=== PATIENT | male | born 1955 | race Caucasian/White ===

== ENCOUNTER → 2016-06-11 | Outpatient (CLI) | payer OTHER | LOC: BHLMT 09:30 | PROVIDERS: ATTEND Internal Medicine Cardiovascular Disease | DX: I25.10 Atherosclerotic heart disease of native coronary artery without angina pectoris (principal) | CPT/HCPCS: 78452; 93017; A9500 ==

== ENCOUNTER 2017-05-08 07:43 | Observation (INO) | payer OTHER, MEDICARE ==
[2017-05-08] MEDS ORDERED: diphenhydrAMINE 25 MG CAP PO ONE (07:49)
[2017-05-08] MEDS ORDERED: DIAZEPAM 5 MG TAB PO ONE (07:49)
[2017-05-08] MEDS ORDERED: NS 1,000 ML IV ONE (07:49)
[2017-05-08] MEDS ORDERED: ASPIRIN EC 325 MG TAB PO ONE (07:49)
[2017-05-08] MEDS ORDERED: FAMOTIDINE 20 MG TAB PO ONE (07:49)
--- NOTE | 2017-05-08 08:39 | CPEKG ---
Heart Rate: 58 RR Interval: 1034 P-R Interval: 144 QRSD Interval: 106 QT Interval: 448 QTC Interval: 441 P [place]: 61 QRS [place]: 7 T Wave [place]: 49 EKG Severity - NORMAL ECG - EKG Impression: SINUS RHYTHM Electronically Signed By: Franko Leavitt 08-May-2017 08:54:25
[2017-05-08 08:59] LABS: PLATELET COUNT 190 10^3/uL (150-400)
[2017-05-08 09:11] LABS: INR 0.98 (0.83-1.16); PROTIME(PATIENT) 13.2 SEC (12.0-15.0)
--- NOTE | 2017-05-08 09:41 | PDGENHP ---
History & Physical Chief Complaint: Chest pressure and dyspnea on exertion. History of Present Illness: History of multivessel CAD that dates back to 2011. Had 4-vessel CABG in October 2011. Sequential SVG to ramus and obtuse marginal branch subsequently shown to be occluded leading to PCI of the ramus and the obtuse marginal in November 2012. Continues to have persistent episodes of chest pressure and dyspnea on exertion despite subsrantial anti-anginal therapy. Pertinent Past, Social, Family History: Detailed in my 03/26/2017 office note. Relevant Physical Exam: Alert and oriented x3. Regular rate and rhythm with a normal S1 and S2. No murmur or gallop. Lungs clear to auscultation bilaterally. Pulses 2+ in all 4 extremities.
[2017-05-08] MEDS ORDERED: IOPAMIDOL (ISOVUE-370) 150 ML BTL IV ONE ×2 (09:42→10:54)
[2017-05-08] MEDS ORDERED: MIDAZOLAM 2 MG/2 ML VIAL ONE ×2 (09:42→10:56)
[2017-05-08] MEDS ORDERED: fentaNYL 100 MCG/2 ML INJ ONE ×2 (09:42→10:56)
[2017-05-08] MEDS ORDERED: LIDOCAINE 1% 300 MG/30 ML SDV ONE (09:42)
--- NOTE | 2017-05-08 09:43 | PDPROPOC ---
Sedation Plan of Care Sedation Plan of Care: vital signs stable, mental status noted, patient educated of risks, benefits, alternatives, patient can tolerate sedation ASA Classification: ASA 2 Planned drugs: fentanyl, midazolam Mallampati Score: Class 2 Mallampati Reference Image: Patient passed 3-3-2 rule?: Yes
[2017-05-08] MEDS ORDERED: BIVALIRUDIN 250 MG/5 ML VIAL IV ONE (10:28)
[2017-05-08] MEDS ORDERED: NITROGLYCERIN 1,500 MCG/15 ML VIAL MISC ONE (11:29)
[2017-05-08] MEDS ORDERED: PRASUGREL HCL 10 MG TAB ONE (11:51)
[2017-05-08] MEDS ORDERED: ONDANSETRON 4 MG/2 ML VIAL IVP PRN (12:06)
[2017-05-08] MEDS ORDERED: PRASUGREL HCL 10 MG TAB PO ONE (12:06)
[2017-05-08] MEDS ORDERED: ATROPINE SULFATE 1 MG/10 ML SYR IVP PRN (12:06)
[2017-05-08] MEDS ORDERED: HYDROCODONE/APAP 5/325 TAB PO PRN (12:06)
[2017-05-08] MEDS ORDERED: NS 1,000 ML IV SCH (12:15)
--- NOTE | 2017-05-08 12:18 | PDDXCAT ---
Diagnostic Cath Note - . Date: 05/09/17 Group Insurance Specialist: Aurelio Indication: CCC Class III and IV angina on medical treatment - Procedure Access: right groin Procedure: left heart catheterization, coronary angiography, left ventriculogram , vein graft injection, JENNINGS injection, other (PCI of ramus intermedius and PCI of Circumflex) - Materials Left Heart Cath size: 6F Left Heart Cath materials: standard multipack (JL4, JR4, pigtail) - Findings-Left Heart Catheterization LM: Normal. LAD: Flouroscopy which reveals the presence of a previously stented segment in the mid-LAD. Angiography reveals mild to moderate irregularities in the proximal LAD which supplies a large first diagonal branch with mild proximal disease. The LAD is occluded within the stented segment. LCX: Fluoroscopy reveals the presence of a previously stented segment in the mid -circumflex. Angiography reveals mild irregularities proximally. The stented segment is widely patent. Immediately distal to the previous stent, there is a high-grade stenosis of at least 80%. The distal circumflex has high-grade disease in its terminal branch. At this region, the circumflex is too small for PCI. RCA: Mid-RCA 100%. Ramus: There is a large bifurcating ramus intermedius. Fluoroscopy reveals the presence of a lengthy stented segment extending from the proximal ramus into the upper division. Angiography demonstrates that the upper branch of the ramus intermedius is 100% occluded immediately after the bifurcation. The upper branch receives [id number] collateral filling. The lower branch has a focal 90 % stenosis at the bifurcation. EDP: 15 mmHg LVEF: 60% Wall motion: Normal Complications: None Estimated blood loss: <50ml Closure method: Angioseal Assessment: 1) Normal left ventricular systolic function. 2)Coronary artery disease as described above. 3) Successful PCI of the inferior branch of a bifurcating ramus intermedius using a single drug coated stent. 4) Successful PCI of the mid to distal circumflex using a single drug coated stent. Intervention: Based on the patient's clinical history and diagnostic angiography, the decision was made to perform PCI of the ramus intermedius and circumflex. The patient received intravenous Angiomax. A 6 Stateless CLS 3.5 guide catheter was advanced to the left main. There were multiple attempts made at passing a guidewire into the occluded upper division of the ramus intermedius. The total occlusion could not be crossed with either an Intuition guidewire or a Linen Keeper-50 guidewire. The Intuition guidewire was then advanced into the inferior branch of the ramus intermedius. Predilatation of the focal 90% lesion was performed using a 2.0 x 12 mm Emerge balloon and a 2.25 x 12 mm NC Emerge balloon. A 2.25 x 12 mm Synergy stent was advanced into position and deployed at high pressure. Subsequent angiograms demonstrated less than 20% residual stenosis and HARDEEP-III flow. The Intuition guidewire was then directed into the distal circumflex. It was felt that the most distal segment of disease was located in a portion of the circumflex that was too small for PCI. Predilatation of the high-grade stenosis immediately distal to his previous stent was performed using the 2.0 x 12 mm Emerge balloon. A 2.5 x 16 mm Synergy stent was positioned and deployed at high pressure. Subsequent angiograms revealed 0% residual stenosis and HARDEEP-III flow. Patient Problems: Problems Problem Status Onset Acute non-ST segment elevation myocardial infarction Active CAD - Coronary arteriosclerosis Active Family history of ischemic heart disease Active History of - coronary artery bypass grafting Active History of placement of stent for coronary artery disease Active Hyperlipidemia Active
--- NOTE | 2017-05-08 12:27 | CPEKG ---
Heart Rate: 51 RR Interval: 1176 P-R Interval: 164 QRSD Interval: 104 QT Interval: 468 QTC Interval: 432 P [place]: 58 QRS [place]: 3 T Wave [place]: 24 EKG Severity - NORMAL ECG - EKG Impression: SINUS RHYTHM Electronically Signed By: Franko Leavitt 08-May-2017 17:35:39
[2017-05-08] MEDS: GEMFIBROZIL 600 MG TAB PO SCH (17:31)
[2017-05-08] MEDS: PANTOPRAZOLE SODIUM 40 MG TAB PO SCH (19:46)
[2017-05-08] MEDS: RANOLAZINE 500 MG TAB.ER PO SCH (19:46)
[2017-05-09 06:36] VITALS: PULSE 54
[2017-05-09 07:32] VITALS: RESP 12; TEMP 98.1; O2SAT 96
[2017-05-09] MEDS: PANTOPRAZOLE SODIUM 40 MG TAB PO SCH (08:38)
[2017-05-09] MEDS: RANOLAZINE 500 MG TAB.ER PO SCH (08:39)
[2017-05-09] MEDS: GEMFIBROZIL 600 MG TAB PO SCH (08:40)
[2017-05-09] MEDS ORDERED: NON-FORMULARY NEW DRUG (Isosorbide Mononitrate [Isosorbide Mononitrate Er] 60 MG) PO SCH (09:00)
[2017-05-09] MEDS ORDERED: PRASUGREL HCL 10 MG TAB PO SCH (09:00)
[2017-05-09] MEDS ORDERED: CYANO/VITAMIN B12 1000 MCG TAB PO SCH (09:00)
[2017-05-09] MEDS ORDERED: ISOSORBIDE MONONITRATE 30 MG TAB.SR PO SCH (09:00)
[2017-05-09] MEDS ORDERED: TIOTROPIUM BROMIDE IH SCH (09:00)
[2017-05-09] MEDS ORDERED: TIOTROPIUM INHALER 18 MCG/DOSE 5 DOSE/MDI IH SCH (09:00)
[2017-05-09] MEDS ORDERED: ASPIRIN EC 325 MG TAB PO SCH (09:00)
[2017-05-09 10:04] VITALS: BP 164/83
[2017-05-09] MEDS ORDERED: CARVEDILOL 6.25 MG TAB PO SCH (18:00)
--- NOTE | 2017-05-09 23:07 | GDS ---
[f rep st] DISCHARGE SUMMARY DISCHARGE DIAGNOSES: 1. Severe coronary artery disease with coronary artery bypass grafting and previous percutaneous int ervention, status post recurrent angina. 2. History of dyslipidemia, intolerant of statins. 3. Hypertension in this admission. 4. Percutaneous intervention to ramus intermedius branch, as well as circumflex in this admission. BRIEF HISTORY: Please see dictated H and P by Dr. Raul Carey for complete details. In brief, th e patient is a 61-year-old male, with a history of coronary artery disease dating back to 1999, at ich time he had a percutaneous intervention. This was followed by bypass grafting in 2011. More rec ently, he has had onset of 2 different types of chest discomfort. He proceeded to left heart cathete rization with the following results. HOSPITAL COURSE BY PROBLEM: 1. Recurrent angina. He proceeded to left heart catheterization and was found to have a patent JENNINGS to LAD and EMELINA to RCA. His ramus intermedius bifurcates with upper branch that was previously lisandra rod with PTCA and stenting. This is now occluded. His lower branch had a 90% obstruction and this w as treated with PTCA and stenting. His left circumflex had a previous percutaneous intervention. Di stal to that, there was an 80% to 90% obstruction. This was treated with PTCA and stenting in this a dmission. It is also noted that he had high-grade disease to his distal vessel that was too small fo r PCI at this time. He will be resumed on dual antiplatelet therapy. He is a poor metabolizer of Pl avix and therefore, will be on Effient as well as aspirin therapy. His antianginals will be continue d. 2. Dyslipidemia. His total cholesterol is 163, triglycerides 67, LDL 111, HDL 39. He has been into lerant of statins. This can be addressed as an outpatient. 3. Hypertension. His blood pressures have been quite elevated through the latter part of his hospit al stay. He has been started on carvedilol 3.125 p.o. twice daily and will follow his blood pressure s at home. He will have followup appointment with Dr. Carey in 1 week's time. PHYSICAL EXAM: VITAL SIGNS: On day of discharge, blood pressure 164/83, heart rate 78, respirations 12, O2 saturation 96% on room air, temperature 98.1 degrees Fahrenheit. GENERAL: He is a pleasant male in no apparent distress. HEENT: Head is normocephalic, atraumatic. Eyes, PERRL. HEART: Regu lar rate and rhythm. LUNGS: Clear. EXTREMITIES: Right groin site with no ecchymosis, no bruit aus cultated. There are 2+ PT and DP pulses bilaterally. LABORATORY DATA: CBC with WBC 5.66, hemoglobin 16.6, hematocrit 48.7, platelet count 190. BMP with sodium 145, potassium 4.2, chloride 108, CO2 22, BUN 28, creatinine 1.6, glucose 98. RESULTS PENDING: None. DIET: Cardiac. ACTIVITY: Groin precautions reviewed. DISCHARGE MEDICATIONS: Please see med reconciliation. He may continue his isosorbide, Ranexa, Saud nix, Lopid, aspirin, Spiriva, vitamin B12, nitroglycerin. His new medications are Effient 10 mg p.o. daily and carvedilol 3.125 p.o. twice daily. His aspirin dose has been increased to 325 mg p.o. michael ly. FOLLOWUP INSTRUCTIONS: Follow up with Dr. Carey as scheduled. /[id number]/MODL
== END 2017-05-09 10:20 | disposition home or self-care (01) ==
LOC: FCATH 07:43 → F2W 11:49
PROVIDERS: ADMIT Internal Medicine Interventional Cardiology; ATTEND Internal Medicine Interventional Cardiology
DX: I25.119 Atherosclerotic heart disease of native coronary artery with unspecified angina pectoris (principal); E78.5 Hyperlipidemia, unspecified; I10 Essential (primary) hypertension; Z95.1 Presence of aortocoronary bypass graft
CPT/HCPCS: 93005; 93459; C1725; C1760; C1769; C1874; C1887; C9600; J0583; J1644; J2250; J2405; J3010; Q9967

== ENCOUNTER → 2017-06-16 | Outpatient (CLI) | payer OTHER, MEDICARE | LOC: BHFA 10:30 | PROVIDERS: ATTEND Internal Medicine Interventional Cardiology | DX: R42 Dizziness and giddiness (principal) ==

== ENCOUNTER → 2018-02-03 | Outpatient (CLI) | payer OTHER, MEDICARE | LOC: BHLMT 11:00 | PROVIDERS: ATTEND Internal Medicine Cardiovascular Disease | DX: I25.10 Atherosclerotic heart disease of native coronary artery without angina pectoris (principal) | CPT/HCPCS: 93017-PO ==

== ENCOUNTER → 2018-04-13 | Outpatient (CLI) | payer OTHER, MEDICARE ==
[~2018-04-13] MED LIST: IOHEXOL 350mgI/ML (OMNIPAQUE) 150 ML BTL IV ONE
== END ==
LOC: FIMAGING 12:15
PROVIDERS: ATTEND Internal Medicine Interventional Cardiology
DX: I65.23 Occlusion and stenosis of bilateral carotid arteries (principal); M48.02 Spinal stenosis, cervical region; M50.322 Other cervical disc degeneration at C5-C6 level; Z86.73 Personal history of transient ischemic attack (TIA), and cerebral infarction without residual deficits
CPT/HCPCS: 70498; 93880; Q9967

== ENCOUNTER 2018-04-17 08:56 | Inpatient (IN) | payer OTHER, MEDICARE ==
[2018-04-17] MEDS ORDERED: ceFAZolin 2 GM/DEXTROSE 100 ML IV ONE (08:58)
--- NOTE | 2018-04-17 09:49 | PDHPUP ---
History & Physical Update H&P update statement: This history and physical update is based on an assessment of the patient which was completed after admission or registration (within 24 hours), but prior to the surgery/procedure. updated H&P update: no change in patient's condition since H&P completed (reviewed)
[2018-04-17 10:05] LABS: PLATELET COUNT 183 10^3/uL (150-400)
[2018-04-17] MEDS ORDERED: BUPIVACAINE 0.5% 30 ML SDV ONE (10:11)
[2018-04-17] MEDS ORDERED: THROMBIN (BOVINE) 20,000 UNIT SPRAY TP ONE (10:11)
[2018-04-17] MEDS ORDERED: PROTAMINE SULFATE 50 MG/5 ML VIAL IVP ONE (10:11)
[2018-04-17] MEDS ORDERED: REMIFENTANIL HCL 1 MG VIAL ONE ×2 (10:12)
[2018-04-17] MEDS ORDERED: PROPOFOL/EMULSION 500 MG/50 ML BOTTLE IV ONE ×2 (10:13)
[2018-04-17] MEDS ORDERED: ROCURONIUM 50 MG/5 ML VIAL ONE (10:29)
[2018-04-17] MEDS ORDERED: ceFAZolin 1 GM VIAL ONE ×2 (10:36)
[2018-04-17] MEDS ORDERED: ONDANSETRON 4 MG/2 ML VIAL IVP PRN ×2 (10:37→11:38)
[2018-04-17] MEDS ORDERED: ENALAPRILAT DIHYDRATE 1.25 MG/ML VIAL IVP PRN (10:39)
[2018-04-17] MEDS ORDERED: NITROGLYCERIN 0.4 MG BTL SL PRN (10:40)
[2018-04-17] MEDS ORDERED: D5W 1/2 NS W/ 20 KCl/L 1,000 ML IV SCH (10:45)
[2018-04-17] MEDS ORDERED: ONDANSETRON 4 MG/2 ML VIAL ONE (11:15)
[2018-04-17] MEDS ORDERED: DEXAMETHASONE 4 MG/ML VIAL ONE ×2 (11:15)
[2018-04-17] MEDS ORDERED: niCARdipine/NACL/200 ML BAG IV ONE (11:29)
[2018-04-17] MEDS ORDERED: NALOXONE HCL 0.4 MG/ML INJ IVP PRN (11:38)
[2018-04-17] MEDS ORDERED: HYDROCODONE/APAP 5/325 TAB PO PRN (11:38)
[2018-04-17] MEDS ORDERED: ALBUTEROL 3 ML DEYVIAL IH PRN (11:38)
[2018-04-17] MEDS ORDERED: fentaNYL 100 MCG/2 ML INJ IVP PRN (11:38)
--- NOTE | 2018-04-17 11:40 | PDANEPAE ---
ANE History of Present Illness L CEA ANE Past Medical History - Cardiovascular History Hx Hypertension: Yes Hx Arrhythmias: No Hx Chest Pain: Yes Hx Coronary Artery / Peripheral Vascular Disease: Yes Hx CHF / Valvular Disease: No Hx Palpitations: No Cardiovascular History Comment: on going chest pain. lightheadedness,dizzyness, near syncope - Pulmonary History Hx COPD: Yes Hx Asthma/Reactive Airway Disease: No Hx Recent Upper Respiratory Infection: No Hx Oxygen in Use at Home: No Hx Sleep Apnea: No Sleep Apnea Screening Result - Last Documented: Positive - Neurologic History Hx Cerebrovascular Accident: No Hx Seizures: No Hx Dementia: No Neurologic History Comment: short term memory issues since CABG. small PR 2013 - Endocrine History Hx Diabetes: No - Renal History Hx Renal Disorders: No - Liver History Hx Hepatic Disorders: No - Neurological & Psychiatric Hx Hx Neurological and Psychiatric Disorders: Yes Neurological / Psychiatric History Comment: right leg/foot numbness/tingling. intermittent since CABG - Cancer History Hx Cancer: No - GI History Hx Gastrointestinal Disorders: Yes Gastrointestinal History Comment: acid reflux - Other Health History Other Health History: bruises easily - Chronic Pain History Chronic Pain: No - Surgical History Prior Surgeries: CABG 2011. 2012 STENTS PLACED. 2018 STENT PLACED ANE Review of Systems Review of Systems: - Exercise capacity METS (RN): 3 METS ANE Patient History - Allergies Allergies/Adverse Reactions: No Known Allergies Allergy (Verified 05/01/17 16:46) - Home Medications Home Medications: Nitroglycerin [Nitrostat 0.4 mg (*)] 0.4 mg SL PRN PRN 11/19/12 [Last Taken ] Aspirin [Aspirin 81mg (*)] 81 mg PO HS 08/26/13 [Last Taken 04/16/18 16:30] Cyanocobalamin [Vitamin B12 (*)] 500 mcg PO HS 05/01/17 [Last Taken 04/16/18] Isosorbide Mononitrate [Isosorbide Mononitrate ER] 60 mg PO DAILY 05/01/17 [ Last Taken 04/17/18] Ranolazine [Ranexa] 500 mg PO BID 05/01/17 [Last Taken 04/17/18] Tiotropium [place] [Spiriva Respimat] 2 puffs IH DAILY 05/01/17 [Last Taken 04/04] Alirocumab [Praluent Pen] 75 mg SQ Q14D 04/16/18 [Last Taken 04/14/18] Carvedilol [Coreg (*)] 6.25 mg PO BIDMEAL 04/16/18 [Last Taken 04/17/18] - NPO status NPO Since - Liquids (Date): 04/17/18 NPO Since - Liquids (Time): 07:30 NPO Since - Solids (Date): 04/16/18 NPO Since - Solids (Time): 16:30 - Smoking Hx Smoking Status: Former smoker - Family Anes Hx Family Hx Anesthesia Complications: none ANE Labs/Vital Signs - Labs Result Diagrams: 04/17/18 09:50 04/17/18 09:50 - Vital Signs Blood Pressure: 111/85 Heart Rate: 56 Respiratory Rate: 18 O2 Sat (%): 92 Height: 190.5 cm Weight: 99.79 kg ANE Physical Exam - Airway Neck exam: FROM Mallampati Score: Class 2 Mouth exam: normal dental/mouth exam - Pulmonary Pulmonary: clear to auscultation - Cardiovascular Cardiovascular: regular rate and rhythym - ASA Status ASA Status: III ANE Anesthesia Plan Anesthesia Plan: general endotracheal anesthesia Lines/Monitors: arterial line
[2018-04-17] MEDS ORDERED: ePHEDrine SULFATE 25 MG/5 ML SYR ONE ×2 (12:28)
--- NOTE | 2018-04-17 12:58 | POSTANESTH ---
Post Anesthetic Evaluation Cardiovascular Status: Normal, Stable Respiratory Status: Normal, Stable Level of Consciousness/Mental Status: Can Participate in Eval, Mildly Sleepy, Arousable Pain Control: Adequate, Prn Tx Ordered Nausea/Vomiting Control: Adequate, Prn Tx Ordered Complications Possibly Related to Anesthesia: None Noted (Moving all four extremities on command,)
--- NOTE | 2018-04-17 13:42 | PDMN ---
Medical Necessity Medical necessity: Pt meets IP criteria as of 04/17/2018 per and [facility] ( Cardiovascular surgery, Thromboendarterectomy); Medicare IP only procedure
[2018-04-17] MEDS ORDERED: ALBUMIN 5% 500 ML BOTTLE IV ONE (13:46)
--- NOTE | 2018-04-17 13:46 | POSTOPPROG ---
Post Op Note Date of Operation: 04/17/18 Surgeon: Tejinder Yo Loss Mitigation Specialist: Keshawn Bobo Anesthesiologist: Dr Britt Anesthesia: GET(General Endotracheal) Pre-op Diagnosis: L carotid stenosis Post-op Diagnosis: same Indication: risk of stroke, recent TIA Procedure: Left CEA Findings: plaque Inf/Abcess present in the surg proc area at time of surgery?: No Depth: Deep Incisional (Fascial) EBL: Minimal Specimen(s): plaque
[2018-04-17] MEDS ORDERED: ceFAZolin 2 GM/DEXTROSE 100 ML IV SCH (14:00)
[2018-04-17] MEDS ORDERED: ALBUMIN 5% 500 ML IV ONE (14:00)
[2018-04-17] MEDS: HYDROCODONE/APAP 5/325 TAB PO PRN ×2 (14:34→21:10)
[2018-04-17] MEDS: ceFAZolin 2 GM/DEXTROSE 100 ML IV SCH ×2 (14:44→22:01)
[2018-04-17] MEDS: HYDROmorphONE/DILAUDID 1 MG/ML INJ IVP PRN ×2 (15:32→23:03)
[2018-04-17] MEDS: CARVEDILOL 6.25 MG TAB PO SCH ×2 (17:09→21:05)
[2018-04-17] MEDS: PANTOPRAZOLE SODIUM 40 MG TAB PO SCH (19:53)
[2018-04-17] MEDS ORDERED: ASPIRIN 81 MG CHEWABLE TAB PO SCH (21:00)
[2018-04-17] MEDS: RANOLAZINE 500 MG TAB.ER PO SCH (21:05)
[2018-04-18] MEDS: ceFAZolin 2 GM/DEXTROSE 100 ML IV SCH (06:05)
[2018-04-18] MEDS: HYDROmorphONE/DILAUDID 1 MG/ML INJ IVP PRN (07:03)
[2018-04-18] MEDS: RANOLAZINE 500 MG TAB.ER PO SCH (09:00)
[2018-04-18] MEDS: PANTOPRAZOLE SODIUM 40 MG TAB PO SCH (09:00)
[2018-04-18] MEDS ORDERED: Tiotropium Bromide [Spiriva Respimat] 2 PUFFS IH SCH (09:00)
[2018-04-18] MEDS ORDERED: PRASUGREL HCL 10 MG TAB PO SCH (09:00)
[2018-04-18 10:00] VITALS: BP 97/45
[2018-04-18] MEDS: CARVEDILOL 6.25 MG TAB PO SCH (10:21)
--- NOTE | 2018-04-18 11:56 | SOAPPROG ---
SOAP Progress Note Assessment/Plan: Assessment: VS STABLE/ NEURO INTACT/ WOUND OK/ ALERT/ WANTS TO GO HOME CHEST CLEAR/ COR RR/ EXTREM INTACT Plan:HOME TODAY 04/18/18 11:55 Objective: Vital Signs Temp Pulse Resp BP Pulse Ox 37.1 C 57 L 12 97/45 L 94 04/18/18 07:09 04/18/18 10:21 04/18/18 09:59 04/18/18 09:59 04/18/18 09:59 Laboratory Results 04/18/18 05:20 04/18/18 05:20 04/17/18 04/18/18 04/19/18 05:59 05:59 05:59 Intake Total 3356 Output Total 2950 Balance 406 ICD10 Worksheet Patient Problems: Problems Problem Status Onset Acute non-ST segment elevation myocardial infarction Active CAD - Coronary arteriosclerosis Active Family history of ischemic heart disease Active History of - coronary artery bypass grafting Active History of placement of stent for coronary artery disease Active Hyperlipidemia Active
--- NOTE | 2018-04-18 15:36 | ASMTLACE ---
ARM[place] Length of stay for Answers: 1 day current admission Acuity / Level of Answers: Yes Care: Did the patient have an inpatient admission? Comorbidities - select Answers: Coronary Artery Disease all that apply Other Notes: Carotid stenosis, CABG, stents, hy perlipidemia # of Emergency department Answers: 0 visits in the last 6 months Score: 7 Date Signed: 04/18/2018 03:36 PM Electronically Signed By:Puja Galvin RN
--- NOTE | 2018-04-18 15:42 | ASDISCHSUM ---
Discharge Information Plan Status:Home with No Needs Medically Cleared to Leave:04/17/2018 Discharge Date:04/18/2018 12:50 PM CM D/C Disposition:Home, Routine, Self-Care ADT D/C Disposition:Home, Routine, Self-Care Projected Discharge Date:04/18/2018 12:50 PM Transportation at D/C:Family Discharge Delay Reason: Follow-Up Date:04/18/2018 12:50 PM Discharge Slot:2 - 12:01 pm - 18:00 pm Final Diagnosis:Carotid stenosis, s/p left CEA Placement Information Patient Contact Information Contact Name:DOLLY Relationship: Address:[address] City:[place] Alternate Phone: [facility]/Zip Code:[place] [address] Email: Financial Information Financial Class:Medicare Primary Plan Desc:MEDICARE INPATIENT Primary Plan Number:[id number] Secondary Plan Desc:[employer]/MDR SUPPLEMENT Secondary Plan Number:[id number] Assessment Information LACE LACE Length of stay for Answers: 1 day current admission Acuity / Level of Answers: Yes Care: Did the patient have an inpatient admission? Comorbidities - select Answers: Coronary Artery Disease all that apply Other Notes: Carotid stenosis, CABG, stents, hy perlipidemia # of Emergency department Answers: 0 visits in the last 6 months Score: 7 Date Signed: 04/18/2018 03:36 PM Electronically Signed By:Puja Galvin RN [facility] Progress Note CM Note CM Note Notes: Reviewed chart. Pt admitted for planned left CEA secondary to carotid stenosis. History is extensive and includes coronary artery disease, pt is s/p stents and a CABG x 4, hyperlipidemia, COPD. Pt is and lives with his . Per MD notes, pt to discharge home independently today with no identified needs. No IM signed, pt admission < 48 hrs. Pt to follow up as directed. CM available for any further issues or concerns. Discharge Plan: Home independently with family support Date Signed: 04/18/2018 03:42 PM Electronically Signed By:Puja Galvin RN Intervention Information
--- NOTE | 2018-04-28 12:51 | GDS ---
[f rep st] DISCHARGE SUMMARY REASON FOR ADMISSION: Surgery for carotid stenosis. PROCEDURE: Left endarterectomy performed by Dr. Yo. HOSPITAL COURSE: The patient is a pleasant 62-year-old male who was noted to have left internal phillips tid artery stenosis of approximately 95%, he was referred by his nursing services manager, he did have an episode of bilateral vision changes which may have been attributable to the carotid stenosis on the left chito e. He also has extensive cardiac history including CABG surgery. He underwent surgery on April, pathology from the surgery demonstrated calcific atherosclerotic plaque. He was discharged t he following day with instructions to follow up in our office in approximately 7-10 days. Overall, h is hospital course was uneventful other than the above mentioned surgery. /[id number]/MODL
== END 2018-04-18 12:50 | disposition home or self-care (01) | DRG 39 ==
LOC: F3N 08:56 → F2N 13:33
PROVIDERS: ADMIT Surgery; ATTEND Surgery
PROC: 03CL0ZZ Extirpation of Matter from Left Internal Carotid Artery, Open Approach (ICD-10-PCS; principal; 2018-04-17 10:30)
DX: I65.22 Occlusion and stenosis of left carotid artery (principal); I10 Essential (primary) hypertension; I25.2 Old myocardial infarction; E78.5 Hyperlipidemia, unspecified; Z95.1 Presence of aortocoronary bypass graft; Z95.5 Presence of coronary angioplasty implant and graft
CPT/HCPCS: 97161-GP; C1768; J0690; J1100; J1170; J1644; J2405; J2704; J2720; P9041

== ENCOUNTER 2018-07-29 13:36 | Observation (INO) | payer OTHER, MEDICARE ==
--- NOTE | 2018-07-29 13:55 | EDPHY ---
H & P Stated Complaint: chest pain Time Seen by Provider: 07/29/18 13:54 HPI/ROS: CHIEF COMPLAINT: Chest pain and dyspnea HISTORY OF PRESENT ILLNESS: The patient has a history of coronary artery disease status post CABG status post PCI most recent stenting in the end of 2018. Patient did undergo a carotid endarterectomy earlier this year. The patient is currently on a aspirin a day. He presents to the ED as he has had intermittent chest pain and shortness of breath increasing over the past day. The patient felt fine yesterday. He denies fever, cough or congestion. He denies acute abdominal pain. He denies infectious symptoms such as fever, vomiting or diarrhea. The patient is currently asymptomatic. The patient reports chest pain like this is atypical for him. He has been having some symptoms of throat discomfort which he states may simply represent acid reflux which he has experienced in the past. REVIEW OF SYSTEMS: A comprehensive 10 point review of systems is otherwise negative aside from elements mentioned in the history of present illness. Source: Patient Exam Limitations: No limitations - Personal History Current Tetanus Diphtheria and Acellular Pertussis (TDAP): Yes - Medical/Surgical History Hx Asthma: Yes Hx Chronic Respiratory Disease: Yes Hx Diabetes: No Hx Cardiac Disease: No Hx Renal Disease: No Hx Cirrhosis: No Hx Alcoholism: No Hx HIV/AIDS: No Hx Splenectomy or Spleen Trauma: No Other PMH: CABG and OK with stents, COPD, GERD, HTN, HIATAL HERNIA - Social History Smoking Status: Former smoker - Physical Exam Exam: General Appearance: Alert, no distress Eyes: Pupils equal and round no pallor or injection ENT, Mouth: Mucous membranes moist Respiratory: There are no retractions, lungs are clear to auscultation Cardiovascular: Regular rate and rhythm Gastrointestinal: Abdomen is soft and nontender, no masses, bowel sounds normal Neurological: A&O, normal motor function, normal sensory exam, normal cranial nerves Skin: Warm and dry, no rashes Musculoskeletal: Neck is supple nontender Extremities: symmetrical, full range of motion Psychiatric: Patient is oriented X 3, there is no agitation Constitutional: Initial Vital Signs Temperature (C) 36.8 C 07/29/18 13:37 Heart Rate 101 H 07/29/18 13:37 Respiratory Rate 16 07/29/18 13:37 Blood Pressure 148/101 H 07/29/18 13:37 O2 Sat (%) 90 L 07/29/18 13:37 O2 Delivery Mode Room Air Allergies/Adverse Reactions: No Known Allergies Allergy (Verified 05/01/17 16:46) Home Medications: Medication Instructions Recorded Nitroglycerin [Nitrostat 0.4 mg 0.4 mg SL PRN PRN 11/19/12 (*)] Aspirin [Aspirin 81mg (*)] 81 mg PO HS 08/26/13 Pantoprazole Sodium [Protonix 40mg 40 mg PO BID #14 tab 08/27/13 (*)] Cyanocobalamin [Vitamin B12 (*)] 500 mcg PO HS 05/01/17 Isosorbide Mononitrate [Isosorbide 60 mg PO DAILY 05/01/17 Mononitrate ER] Ranolazine [Ranexa] 500 mg PO BID 05/01/17 Tiotropium [place] [Spiriva 2 puffs IH DAILY 05/01/17 Respimat] Prasugrel HCl [Effient 10mg (*)] 10 mg PO DAILY 90 Days #90 tab 05/09/17 Alirocumab [Praluent Pen] 75 mg SQ Q14D 04/16/18 Carvedilol [Coreg (*)] 6.25 mg PO BIDMEAL 04/16/18 Medical Decision Making - Diagnostics EKG Interpretation: EKG: Complete interpretation has been separately recorded in the [facility] [employer] archive. Summary impression: Sinus rhythm, rate 93 Imaging Results: Chest x-ray PA/lateral: Images reviewed by myself. Impression negative for heart failure, cardiomegaly or focal infiltrate. ED Course/Re-evaluation: The patient presents the ED with complaints of intermittent chest pain and dyspnea. The patient does have a history of coronary artery disease status post CABG in PCI. The patient denies any cough. He does complain of fatigue and subjective fevers. The patient does report moderate dyspnea on exertion. The patient's EKG demonstrates an it no evidence of ischemia. The patient's initial troponin is normal. The patient's D-dimer is negative which I feel adequately excludes pulmonary embolism. My review of the chest x-ray demonstrates no evidence of cardiomegaly, heart failure or pneumonia. The patient has a heart score of 5 or 6. I do feel he requires admission to the hospital for further evaluation and workup. Nani Frazier from the cardiology service has been notified of the patient's admission. Consultation was made with the hospitalist service at 3:00 p.m.. Differential Diagnosis: Differential diagnosis considered includes myocardial infarction, unstable angina, pericarditis, pneumonia, pulmonary embolism, aortic dissection - Data Points Laboratory Results: Laboratory Results 07/29/18 13:55 07/29/18 13:55 07/29/18 07/29/18 07/29/18 14:03 13:55 13:55 WBC RBC Hgb Hct MCV MCH MCHC RDW Plt Count MPV Neut % (Auto) Lymph % (Auto) [place] % (Auto) Eos % (Auto) Baso % (Auto) Nucleat RBC Rel Count Absolute Neuts (auto) Absolute Lymphs (auto) Absolute Monos (auto) Absolute Eos (auto) Absolute Basos (auto) Absolute Nucleated RBC Immature Gran % Immature Gran # RBC/WBC/PLT Morphology Platelet Estimate D-Dimer 0.46 ug/mLFEU ug/mLFEU (0.00-0.50) Sodium 139 mEq/L mEq/L (135-145) Potassium 4.0 mEq/L mEq/L (3.5-5.2) Chloride 105 mEq/L mEq/L (97-110) Carbon Dioxide 21 mEq/l L mEq/l (22-31) Anion Gap 13 mEq/L mEq/L (6-14) BUN 20 mg/dL mg/dL (7-23) Creatinine 1.1 mg/dL mg/dL (0.7-1.3) Estimated GFR > 60 Glucose 127 mg/dL H mg/dL (70-100) Calcium 9.5 mg/dL mg/dL (8.5-10.4) POC Troponin I 0.00 ng/mL ng/mL (0.00-0.08) NT-Pro-B Natriuret Pep 492 pg/mL H pg/mL (0-125) 07/29/18 13:55 WBC 14.41 10^3/uL H 10^3/uL (3.80-9.50) RBC 5.92 10^6/uL 10^6/uL (4.40-6.38) Hgb 18.1 g/dL H g/dL (13.7-17.5) Hct 52.5 % H % (40.0-51.0) MCV 88.7 fL fL (81.5-99.8) MCH 30.6 pg pg (27.9-34.1) MCHC 34.5 g/dL g/dL (32.4-36.7) RDW 13.7 % % (11.5-15.2) Plt Count 208 10^3/uL 10^3/uL (150-400) MPV 11.2 fL fL (8.7-11.7) Neut % (Auto) 91.6 % H % (39.3-74.2) Lymph % (Auto) 2.9 % L % (15.0-45.0) [place] % (Auto) 4.4 % L % (4.5-13.0) Eos % (Auto) 0.5 % L % (0.6-7.6) Baso % (Auto) 0.2 % L % (0.3-1.7) Nucleat RBC Rel Count 0.0 % % (0.0-0.2) Absolute Neuts (auto) 13.20 10^3/uL H 10^3/uL (1.70-6.50) Absolute Lymphs (auto) 0.42 10^3/uL L 10^3/uL (1.00-3.00) Absolute Monos (auto) 0.63 10^3/uL 10^3/uL (0.30-0.80) Absolute Eos (auto) 0.07 10^3/uL 10^3/uL (0.03-0.40) Absolute Basos (auto) 0.03 10^3/uL 10^3/uL (0.02-0.10) Absolute Nucleated RBC 0.00 10^3/uL 10^3/uL (0-0.01) Immature Gran % 0.4 % % (0.0-1.1) Immature Gran # 0.06 10^3/uL 10^3/uL (0.00-0.10) RBC/WBC/PLT Morphology TNP Platelet Estimate TNP D-Dimer Sodium Potassium Chloride Carbon Dioxide Anion Gap BUN Creatinine Estimated GFR Glucose Calcium POC Troponin I NT-Pro-B Natriuret Pep Point of Care Test Results: Chemistry 07/29/18 14:03 POC Troponin I 0.00 ng/mL ng/mL (0.00-0.08) Departure - Departure Disposition: [facility] Inpatient Acute Clinical Impression: Chest pain Condition: Fair Referrals: JAZZMINE MEJIA [Primary Care Provider] - As per Instructions
--- NOTE | 2018-07-29 14:16 | CPEKG ---
Test Reason : OPEN Blood Pressure : / mmHG Vent. Rate : 093 BPM Atrial Rate : 093 BPM P-R Int : 128 ms QRS Dur : 095 ms QT Int : 357 ms P-R-T Axes : 068 -12 077 degrees QTc Int : 445 ms Sinus rhythm Probable left atrial enlargement Confirmed by Chance Perez ([id number]) on 07/29/2018 2:15:44 PM Referred By: Chance Perez Confirmed By:Chance Perez
[2018-07-29 14:17] LABS: PLATELET COUNT 208 10^3/uL (150-400)
[2018-07-29] MEDS ORDERED: IPRATROPIUM/ALBUTEROL 3 ML DEYVIAL IH PRN (15:52)
[2018-07-29] MEDS ORDERED: ACETAMINOPHEN 325 MG TAB PO PRN (15:52)
[2018-07-29] MEDS ORDERED: ONDANSETRON 4 MG/2 ML VIAL IVP PRN (15:52)
[2018-07-29] MEDS ORDERED: NS 1,000 ML IV SCH (16:00)
--- NOTE | 2018-07-29 16:54 | GHP ---
[f rep st] HISTORY AND PHYSICAL DATE OF ADMISSION: 07/29/2018 CHIEF COMPLAINT: Chest pain and myalgias. HISTORY: The patient is a 62-year-old male with a history of CABG in 2011, stents in 2012 and 2017. After his last cardiac cath in 2018, his chest pain went away for about a month but he continues to have intermittent chronic angina starting up again shortly after that last catheterization. Chest pains happen every couple of days without any obvious pattern. They do not get worse with exertion but he does notice they sometimes get worse when he lies on his back. He also has GERD and has a hard time telling the difference between GERD and chest pain. In the middle of the night last night, he woke up with flu-like symptoms. Initially all of his joints hurt and then it moved to his muscles. He is achy all over. He is dizzy and lightheaded. He was so weak he could barely get dressed to come to the hospital. He has increased shortness of breath. Fever at home 99.8, there is no cough. He feels very dehydrated. He got dizzy and almost passed out when he was upright for the chest x-ray in the emergency room. During this episode, he had recurrence of chest pain similar to his previous chest pains. He describes this as a left-sided chest pressure. PAST MEDICAL HISTORY: 1. Coronary artery disease, status post CABG and stent as above. 2. Peripheral vascular disease status post carotid endarterectomy. 3. Hypertension. 4. Hyperlipidemia. 5. COPD. 6. GERD. 7. Short-term memory loss. MEDICATIONS: Please see computerized record for full detailed list. ALLERGIES: No known drug allergies. SOCIAL HISTORY: He smoked from 1968 until 2009. He did indulge in alcohol socially, sometimes heavy, in the past but none currently due to interactions with his current medication regimen. He lives with his . He is retired from the electrical business. REVIEW OF SYSTEMS: Complete review of systems was obtained. Review of systems negative on constitutional, HEENT, GI, pulmonary, vascular, , hematologic, endocrine and psych; positives as in HPI. FAMILY HISTORY: Reviewed, noncontributory to presenting complaint. PHYSICAL EXAMINATION: GENERAL: Well-developed, well-nourished male, in no distress. VITAL SIGNS: Temperature 36.8, pulse 86, blood pressure 152/89, saturating 90% on room air. HEENT: Eye examination normal conjunctivae. Pupils equal, round, react to light. ENT normal ears and nose. Hearing intact. Normal teeth. Oropharynx dry. NECK: Trachea midline. No thyromegaly. CHEST: Normal effort. LUNGS: Clear to auscultation bilaterally. No wheeze or rhonchi. CARDIOVASCULAR SYSTEM: Regular rate and rhythm. No murmur. No lower extremity edema. ABDOMEN: Soft, nontender. No hepatosplenomegaly. SKIN: Warm, dry, intact. No rash. MUSCULOSKELETAL: No cyanosis or clubbing. Strength 5/5 upper and lower extremities. NEUROLOGIC: Cranial nerves intact. Normal sensation to light touch. PSYCH: Alert and oriented x3. Normal affect. Normal judgment. Normal memory. LABORATORY DATA: White count 14.4, hematocrit 52.5, platelets 208, sodium 139, potassium 4.0, chloride 105, bicarb 21, BUN 20, creatinine 1.1. Glucose 127. Troponins negative. BNP is 492. D-dimer is negative. EKG viewed by me, my personal interpretation is normal sinus rhythm. No ST or T-wave changes. Chest x-ray is negative. Medical records review. His last hospitalization was for his carotid endarterectomy in April of this year. Also previous cath report from 2018 reviewed. ASSESSMENT/PLAN: 1. Chest pain. The patient has a history of chronic angina when the chest pain today is slightly increased from his baseline pain. Last cardiac catheterization with stent placement 2018. Cardiology was consulted by the emergency room. I spoke with Nani Frazier who has already spoken to the patient. Her clinical suspicion for cardiac etiology of chest pain is relatively low. His current heart score is 3 to 4. Nani Frazier ordered an echocardiogram, I will make him n.p.o. after midnight in case stress test is desired but will defer to Cardiology whether or not to proceed. 2. Myalgias, shortness of breath and low-grade fever. This sounds very much like a viral infection. We will check a respiratory PCR. We will check a procalcitonin. He does have leukocytosis. I would like to rule out pneumonia, although at this point, I do not think we have enough evidence to start antibiotics. 3. Dehydration with presyncope. Will hydrate with IV fluids. 4. Coronary artery disease, status post previous coronary artery bypass graft and stents. Will clarify home medication regimen for this and reconcile. 5. Peripheral vascular disease, status post recent carotid endarterectomy. This was done for a greater than 95% stenosis critical lesion in the left internal carotid artery. On the CT angiogram, which was done in March, he had minimal disease in his other vessels. 6. Chronic obstructive pulmonary disease. Currently, I do not hear any wheezing. We will continue his usual nebulizers. This could be mildly exacerbated if due to probable viral infection. CODE STATUS: Full. ADMISSION STATUS: Will admit to observation. Reevaluate tomorrow. DVT PROPHYLAXIS: High risk. [facility]. /[id number]/MODL MTDD
--- NOTE | 2018-07-29 17:05 | ECHO ---
[email or web address] [address] [address] Main: [phone] Echocardiography Examination Transthoracic Name: JAZZMINE GONZALEZ MR#: [id number] Study Date: 07/29/2018 Study Time: 03:51 PM Date of : 1955 Age: 62 year(s) Height: 190.5 cm (75 in.) Weight: 97.52 kg (215 lb.) BSA: 2.26 m2 Gender: Male Examination: Echo Contrast: Image Quality: Fair Rhythm: Heart Rate: BP: 152 mmHg/89 mmHg Indication: CP, Shortness of breath, Hx of CABG, Stents Procedure Staff Referring Physician: Language Instructor: Miguel Angel Cantu RDCS Reading Physician: Julieta Maldonado MD Requesting Provider: Ordering Physician: Nani Frazier Indication: CP, Shortness of breath, Hx of CABG, Stents Measurements Chambers AV/MV Label Value Normal Value Label Value Normal Value LVDd, MM 5.8 cm (4.2cm - 5.9cm) MV E Vmax 0.37 m/s LVDd, 2D 5.1 cm (4.2cm - 5.9cm) MV A Vmax 0.67 m/s LVDs, MM 4.1 cm (2cm - 3.8cm) MV E/A 0.55 LVDs, 2D 3.5 cm (2.1cm - 4cm) MV E/E' lateral 4 IVSd, MM 1.5 cm (0.6cm - 0.9cm) MV E/E' septal 5.3 (0.45 - 1.25) IVSd, 2D 1.2 cm (0.6cm - 1.1cm) MV E' septal 0.07 m/s LVPWd, MM 1.3 cm (0.6cm - 1cm) MV E' lateral 0.09 m/s LVPWd, 2D 1.2 cm (0.6cm - 1cm) MV E/E' mean 4.62 LVEF, 2D 58 % (54% - 74%) MV E' mean 0.08 m/s LA Volume, BP 41 ml (18ml - 58ml) TV/PV LAESV index, BP 18.1 ml/m2 Label Value Normal Value Additional Vessels PV PGmax 6 mmHg Label Value Normal Value PV Vmax, Caliper 1.18 m/s (0.6m/s - 0.9m/s) AoRoot, MM 3.6 cm (2.2cm - 3.7cm) Conclusions 1.The left ventricle is normal in size and systolic function. Ejection fraction 60%. There is subtle inferior hypokinesis. Mild concentric LVH. 2. the right ventricle is normal in size and systolic function. Patient: JAZZMIEN GONZALEZ Study Date: 07/29/2018 Page 1 of 2 03:51 PM 3. no significant valvular disease. 4. no pericardial effusion, but subcostal views were not obtained. 5. No previous echo available for review. Findings Left Ventricle: Subtle inferior hypokinesis. Left ventricle is normal in size. Normal global systolic left ventricular function. The EF is visually estimated to be 60 %. EF range is estimated at 55 % - 60 %. There is mild concentric left ventricular hypertrophy. Diastolic Dysfunction is indeterminate. Right Ventricle: Normal size right ventricle. Right ventricular wall thickness is normal. Right ventricular systolic function is normal. Left Atrium: The left atrium is normal in size. Right Atrium: The right atrium is normal in size. Mitral Valve: Mitral valve appears structurally normal. No significant mitral regurgitation. No mitral valve stenosis. Aortic Valve: No significant aortic valve regurgitation. There is no aortic stenosis. Aortic leaflets exhibit mild calcification. The aortic valve is trileaflet. Tricuspid Valve: Tricuspid valve leaflets are normal in appearance and function. No significant tricuspid regurgitation. Pulmonic Valve: Pulmonic leaflets are normal in appearance and function. Aorta: The aorta is normal. The aortic root size in M-mode measures 3.6 cm. Aorta Measurements AoRoot, MM is 3.6 cm. Pericardium: There are no subcostal view available.. No pericardial effusion. Exam Details Procedure Ordered: Echo Image Quality: Fair (No Signature Object) Patient: JAZZMINE GONZALEZ Study Date: 07/29/2018 Page 2 of 2 03:51 PM [id number]
--- NOTE | 2018-07-29 17:44 | GCON ---
[f rep st] CONSULTATION DATE OF CONSULTATION: 07/29/2018 CHIEF COMPLAINT: Chest pain and flu-like symptoms. HISTORY OF PRESENT ILLNESS: The patient is a 62-year-old male with a history of coronary artery dise ase, who presented to the hospital with chest pain and flu-like symptoms. His cardiac history began in 2011, when he underwent 4-vessel coronary artery bypass grafting. He did well until April 2017 , when he had recurrent chest pain requiring stenting to the ramus and left circumflex artery. At th at time, the JENNINGS to the LAD and EMELINA to the right coronary artery were both patent. Sequential sing le vein graft to the ramus intermedius and obtuse marginal branch was 100% occluded. The patient sta harsha his chest discomfort resolved for approximately 1 month and then returned. He has had intermitte nt chest discomfort since that time that has not necessarily been associated with exertion. This mor olu at 5 a.m., he woke with left-sided chest pain, which has been waxing and waning throughout the d ay. He also noted fairly significant dyspnea on exertion with even minimal exertion such as standing up to walk to the bathroom. This was also associated with dizziness. Lastly, he has had diffuse mu scle and joint achiness. His initial troponin is 0. His BNP is minimally elevated at 492. His whit e blood cell count is also elevated at 14.4. A chest x-ray was read by Radiology as no cardiopulmona ry disease. It was also interpreted by the hospitalist who felt like a small pneumonia could be pres ent. His EKG has nonspecific ST-T wave changes. PAST MEDICAL HISTORY: Coronary artery disease, GERD, COPD, hypertension, hiatal hernia, reflux, phillips tid disease. PAST SURGICAL HISTORY: Four-vessel CABG and left carotid endarterectomy. SOCIAL HISTORY: He is a former tobacco user. He is currently accompanied by his . HOME MEDICATIONS: Nitroglycerin, aspirin, Protonix, vitamin B12, Imdur, Ranexa, Spiriva, Effient, Co reg and Praluent. ALLERGIES: No known drug allergies. REVIEW OF SYSTEMS: A 10-point review of systems was negative except for what is stated in the H and P. PHYSICAL EXAMINATION: GENERAL: Patient appears in no acute distress. VITALS: Blood pressure 152/8 9, heart rate 86, oxygen saturation of 90% on room air. Afebrile. NECK: No carotid bruits or JVD p resent. LUNGS: Clear to auscultation, but poor air movement bilaterally. No wheezes or rhonchi aus cultated. CARDIAC: Regular rate and rhythm, without any significant murmurs, rubs, or gallops appre ciated. ABDOMEN: Distended with bowel sounds present. Nontender to palpation. EXTREMITIES: Palpa ble pulses bilaterally without any evidence of edema. NEUROLOGIC: Nonfocal. PSYCHIATRIC: Mood and affect appropriate. SKIN: No obvious rashes or ecchymosis identified. LABORATORY DATA: Troponin negative x1. BNP 492. White blood cell count is elevated at 14.41. D-di remington negative at 0.46. DIAGNOSTIC STUDIES: His EKG shows normal sinus rhythm with nonspecific diffuse ST-T wave changes. C hest x-ray was negative for acute cardiopulmonary disease. ASSESSMENT: The patient is a 62-year-old male with a history of coronary artery disease and chronic angina, who presents with flu-like symptoms and chest pain. PLAN: The patient has a history of coronary artery disease and chronic angina. He has complained of chest discomfort since 1 month post stenting to his ramus and left circumflex artery in April. This morning, his chest discomfort was slightly more pronounced, but was also associated with flu -like symptoms and shortness of breath. His initial troponin is negative and EKG shows nonspecific S T-T wave changes. I think his symptoms are most likely related to flu/pneumonia, but we will rule ou t a cardiac cause. I would like an echocardiogram to assess for wall motion abnormalities. We will also continue to trend his troponins and repeat an EKG tomorrow morning. He should continue his card iac medications including aspirin, Imdur, Ranexa, Effient, Coreg, and Praluent. He is complaining of shortness of breath and diffuse myalgias. His white blood cell count is elevate d and possible evidence of pneumonia on chest x-ray. This will be further assessed by the bello Pichardo #: [id number]/[id number]
[2018-07-29] MEDS: CARVEDILOL 6.25 MG TAB PO SCH (18:03)
[2018-07-29] MEDS ORDERED: ASPIRIN 81 MG CHEWABLE TAB PO SCH (18:30)
[2018-07-29] MEDS ORDERED: CYANO/VITAMIN B12 1000 MCG TAB PO SCH (18:30)
[2018-07-29] MEDS: RANOLAZINE 500 MG TAB.ER PO SCH (21:00)
[2018-07-29] MEDS: PANTOPRAZOLE SODIUM 40 MG TAB PO SCH (21:01)
[2018-07-30 04:30] LABS: PLATELET COUNT 142 10^3/uL (150-400)
[2018-07-30] MEDS ORDERED: ENOXAPARIN 40 MG/0.4 ML SYR SC SCH (09:00)
[2018-07-30] MEDS ORDERED: ISOSORBIDE MONONITRATE 30 MG TAB.SR PO SCH (09:00)
[2018-07-30] MEDS ORDERED: Tiotropium Bromide [Spiriva Respimat] IH SCH (09:00)
--- NOTE | 2018-07-30 10:23 | PDCARPN ---
Cardiology Progress Note Chief Complaint: Chest pain, YANG, fatigue, and muscle aches. Assessment/Plan: Assessment: Keshawn is a 62 y/o M with a history of HLP, PVD s/p CEA, chronic angina, and CAD s/p 4v CABG in 2011 who presented with myalgias, YANG, and CP. He woke yesterday around 5 AM with diffuse achiness and chest pain. His CP was a little more pronounce then normal. He also noted a mild fever and fairly pronounced YANG. He was short of breath with just walking to the bathroom. His troponins are negative x3 and echo showed subtle inferior hypokinesis. His WBC was elevated but normalized today. He is feeling better today. Plan: 1. CAD- s/p 4v CABG and stenting. Echo showed mild inferior hypokinesis. Plan for Lexiscan nuc today. Continue medical management of his CAD with Aspirin, Coreg, Imdur, and Ranexa. 2. Myalgias- likely viral etiology. WBC normalized. He is feeling better today. 3. PVD s/p CEA- continue statin and Praluent 4. PVC's- occasional on tele. Nuc is pending. Nuc was a low risk study. EF of 50% with no evidence of infarct or ischemia. Ok to d/c home from a cardiac standpoint. He is going to [place] in a few days. Follow up with Dr. Carey when he returns. 07/30/18 13:34 Subjective: C/o of 1 episode of sharp CP which lasted for 5 seconds and then resolved. He is still having intermittant myalgia and CP but his symptoms have improved. Objective: Vital Signs (8 Hrs) Temp Pulse Resp BP Pulse Ox 07/30/18 07:22 37.3 C 76 20 110/68 95 07/30/18 03:46 37.4 C 87 20 139/82 H 92 Intake/Output (24 Hrs) 07/29/18 07/30/18 07/31/18 05:59 05:59 05:59 Intake Total 543 1219 Balance 543 1219 Intake: Oral (ml) 400 IV Infused (ml) 143 1219 Ns 1,000 ml @ 100 mls/hr 143 1219 IV CONT DON Rx#: [id number] Other: Weight 99.278 kg Number of Voids Urinal 1 Number of Stools Bedside Commode 1 Toilet 1 Result Diagrams: 07/30/18 04:10 07/30/18 04:10 Cardiac Labs: Cardiac Lab Results (72 Hrs) 07/30/18 07/29/18 04:10 17:33 Troponin I < 0.012 < 0.012 Telemetry: NSR with frequent PVC's. - Physical Exam Constitutional: healthy appearing Cardiovascular: regular rate and rhythm, no murmurs, no rubs, no gallops Respiratory: clear to auscultate bilat, no crackles, no wheezes Skin: no edema Neurologic: AAOx3 ICD10 Worksheet Patient Problems: Problems Problem Status Onset Chest pain Acute Acute non-ST segment elevation myocardial infarction Active CAD - Coronary arteriosclerosis Active Family history of ischemic heart disease Active History of - coronary artery bypass grafting Active History of placement of stent for coronary artery disease Active Hyperlipidemia Active
[2018-07-30] MEDS ORDERED: REGADENOSON 0.4 MG/5 ML SYR IVP ONE (10:28)
--- NOTE | 2018-07-30 11:16 | CPR ---
[f rep st] NONINVASIVE CARDIAC PROCEDURE REPORT DATE OF PROCEDURE: 07/30/2018 PROCEDURE: Lexiscan nuclear stress test. INDICATION: The patient is a 62-year-old male with a history of coronary artery disease, status post 4-vessel CABG in 2012 and stenting to his ramus and left circ in 2018. He presented to the hospital complaining of progressive chest discomfort as well as myalgias and low-grade fever. An echocardiog vika showed subtle inferior hypokinesis. PROCEDURE IN DETAIL: Consent was obtained, and the patient was placed on continuous telemetry. His resting EKG revealed normal sinus rhythm with a heart rate of 69. There were nonspecific ST-T wave c hanges. The patient was infused with Lexiscan and denied any symptoms associated with the infusion. He remained in normal sinus rhythm throughout the study. His blood pressure at rest was 125/78 and remained stable throughout the study. PLAN: Await nuclear images. /[id number]/MODL
--- NOTE | 2018-07-30 13:56 | HOSPPROG ---
Hospitalist Progress Note Assessment/Plan: 62 yo M w cad here w myalgias, diarrhea, cp neg eval home today Subjective: neg stress Objective: Vital Signs Temp Pulse Resp BP Pulse Ox 36.8 C 61 18 120/69 97 07/30/18 11:45 07/30/18 11:45 07/30/18 11:45 07/30/18 11:45 07/30/18 11:45 Microbiology 07/29/18 17:00 Respiratory Panel (PCR) - Final Nasal, Sinus - Swab No Organism Detected By Pcr Laboratory Results 07/30/18 04:10 07/30/18 04:10 07/29/18 07/30/18 07/31/18 05:59 05:59 05:59 Intake Total 543 1219 Balance 543 1219 - Physical Exam Constitutional: no apparent distress, appears nourished Eyes: PERRL, anicteric sclera Ears, Nose, Mouth, Throat: moist mucous membranes, hearing normal Cardiovascular: regular rate and rhythym, no murmur, rub, or gallop Respiratory: no respiratory distress, no rales or rhonchi Gastrointestinal: normoactive bowel sounds, soft, non-tender abdomen Genitourinary: no bladder fullness, No remy in urethra Skin: warm, normal color Musculoskeletal: full muscle strength ICD10 Worksheet Patient Problems: Problems Problem Status Onset Chest pain Acute Acute non-ST segment elevation myocardial infarction Active CAD - Coronary arteriosclerosis Active Family history of ischemic heart disease Active History of - coronary artery bypass grafting Active History of placement of stent for coronary artery disease Active Hyperlipidemia Active
--- NOTE | 2018-07-30 14:04 | ASDISCHSUM ---
Discharge Information Plan Status:Home with No Needs Medically Cleared to Leave:07/30/2018 Discharge Date:07/30/2018 CM D/C Disposition:Home, Routine, Self-Care ADT D/C Disposition: Projected Discharge Date:07/30/2018 Transportation at D/C: Discharge Delay Reason: Follow-Up Date:07/30/2018 Discharge Slot: Final Diagnosis: Placement Information Patient Contact Information Contact Name:DOLLY Relationship: Address:[address] City:[place] Alternate Phone: State/Zip Code:[place] [address] Email: Financial Information Financial Class:Medicare Primary Plan Desc:MEDICARE OUTPATIENT Primary Plan Number:[id number] Secondary Plan Desc:[employer]ASME[employer] SUPPLEMENT Secondary Plan Number:[id number] Assessment Information LACE LACE Length of stay for Answers: Less than 1 day current admission Acuity / Level of Answers: No Care: Did the patient have an inpatient admission? Comorbidities - select Answers: Chronic pulmonary disease all that apply Coronary Artery Disease Peripheral vascular disease Previous myocardial infarction Other Notes: HTN; HLD # of Emergency department Answers: 1-2 visits in the last 6 months Score: 8 Date Signed: 07/30/2018 02:02 PM Electronically Signed By:Edna Olson RN Intervention Information
--- NOTE | 2018-07-30 14:07 | GDS ---
[f rep st] DISCHARGE SUMMARY DISCHARGE DIAGNOSES: 1. History of coronary disease. 2. History of cerebral vascular disease, status post carotid endarterectomy. 3. Hypertension and hyperlipidemia. Please see admission history and physical by Dr. Kinza Norwood. HOSPITAL COURSE: The patient presented with chest pain in the setting of myalgias. He had a negativ e viral panel. He has been having some liquid diarrhea without recent antibiotic exposure and no abd ominal pain. He had a nuclear stress test that was unremarkable. He was discharged home on an uncha nged medication regimen with a diagnosis of viral gastroenteritis. He had a benign abdominal exam wi th bowel sounds. He was able to eat. /[id number]/MODL
[2018-07-30] MEDS: RANOLAZINE 500 MG TAB.ER PO SCH (14:14)
[2018-07-30] MEDS: CARVEDILOL 6.25 MG TAB PO SCH (14:14)
[2018-07-30] MEDS: PANTOPRAZOLE SODIUM 40 MG TAB PO SCH (14:15)
[2018-07-30 14:17] VITALS: BP 124/77
== END 2018-07-30 15:27 | disposition home or self-care (01) ==
LOC: F2W 16:25
PROVIDERS: ADMIT Internal Medicine; ATTEND Internal Medicine
DX: R07.9 Chest pain, unspecified (principal); A08.4 Viral intestinal infection, unspecified; I25.118 Atherosclerotic heart disease of native coronary artery with other forms of angina pectoris; K21.9 Gastro-esophageal reflux disease without esophagitis; J44.9 Chronic obstructive pulmonary disease, unspecified; I10 Essential (primary) hypertension; K44.9 Diaphragmatic hernia without obstruction or gangrene; E78.5 Hyperlipidemia, unspecified; I73.9 Peripheral vascular disease, unspecified; R41.3 Other amnesia; Z95.1 Presence of aortocoronary bypass graft; Z95.5 Presence of coronary angioplasty implant and graft
CPT/HCPCS: 71046; 78452; 93005; 93017; 93306; A9500; G0378; J1650; J2785; 84484-ER